=== PATIENT | female | born 1955 | race Caucasian/White ===

== ENCOUNTER → 2022-04-15 12:22 | Outpatient (BNVA) | payer OTHER, SELFPAY | PROVIDERS: PCP Pediatrics; Visit Provider Dietitian, Registered | DX: E11.9 Type 2 diabetes mellitus without complications (principal) | CPT/HCPCS: 97802 ==

== ENCOUNTER 2022-05-21 08:00 | Outpatient (REF) | payer OTHER, SELFPAY ==
--- NOTE | ~2022-05-21 | XR_ITS ---
EXAMINATION: XR SHOULDER, RIGHT CLINICAL INFORMATION: Pain COMPARISON: None TECHNIQUE: Three views of the right shoulder. FINDINGS: Normal glenohumeral alignment. No acute fracture or dislocation. Mild acromioclavicular arthritis. No abnormal soft tissue calcification. No suspicious findings in the visualized right lung.. XR/XR shoulder RT min 2V IMPRESSION: No acute osseous abnormality. Mild acromioclavicular arthritis.
== END 2022-05-21 08:01 | disposition home or self-care (01) ==
LOC: HO.HOSX 08:00
PROVIDERS: Visit Provider Physician Assistant
DX: M75.101 Unspecified rotator cuff tear or rupture of right shoulder, not specified as traumatic (principal); E11.9 Type 2 diabetes mellitus without complications
CPT/HCPCS: 20610; 73030; J1020

== ENCOUNTER 2022-07-05 10:16 | Outpatient (RCR) | payer OTHER, SELFPAY | END 2022-08-05 12:39 | disposition home or self-care (01) | LOC: HO.PT 10:16 | PROVIDERS: PCP Pediatrics; Visit Provider Physician Assistant | DX: M75.101 Unspecified rotator cuff tear or rupture of right shoulder, not specified as traumatic (principal) ==

== ENCOUNTER 2023-02-02 12:03 | Emergency (ER) | payer OTHER, SELFPAY ==
--- NOTE | ~2023-02-02 | XR_ITS ---
EXAMINATION: XR FOOT, LEFT CLINICAL INFORMATION: Question fracture COMPARISON: None available. TECHNIQUE: AP, lateral, and oblique views of the left foot. FINDINGS: Soft tissue marker positioned on the dorsal aspect of the midfoot. There are linear lucencies seen in the fifth metatarsal distal metadiaphysis. Findings raise concern for an undisplaced fracture. There is linear lucency seen in the more proximal shaft/base of the fifth metatarsal, could represent vascular channels versus undisplaced fracture planes. There is lucency and mild cortical malalignment of the distal fourth metatarsal neck, suspicious for a fracture. Alignment is anatomic. Tarsometatarsal alignment appears maintained. Small ossification distal to the medial sesamoid, could represent degenerative changes versus age indeterminate trauma. Clinically correlate. XR/XR foot LT min 3V IMPRESSION: 1. Findings suspicious for a nondisplaced fracture of the fifth metatarsal distal metadiaphysis. Linear lucencies in the proximal fifth metatarsal, could represent a vascular channel versus undisplaced fracture planes. 2. Findings suspicious for a distal fourth metatarsal neck fracture. 3. Small ossification distal to the medial sesamoid, could represent degenerative changes versus age-indeterminate trauma. Clinically correlate.
[2023-02-02 12:16] VITALS: BP 131/92; PULSE 79; RESP 18; TEMP 36.9; O2SAT 97; BMI 22.0
--- NOTE | 2023-02-02 13:38 | ED_ITS ---
HPI - General Adult General Chief complaint: Fall Stated complaint: fell 02/01/ broken foot? Time Seen by Provider: 02/02/23 12:56 Source: patient Mode of arrival: ambulatory Limitations: no limitations History of Present Illness HPI narrative: 67 yold female presents to the ED for left foot pain since yesterday. patient states yesterday she twisted her foot and heard a crack in the foot. patient she twisted her left foot trying to break her fall at a restaurant. patient denies falling to the ground or hitting head. Patient states for pain while walking since yesterday. Related Data Home Medications Medication Instructions Recorded Confirmed flash glucose sensor (FreeStyle #1 ea 05/21/22 Radha 14 Day Sensor kit) metformin 500 mg tablet,extended 1,000 mg PO BID 05/21/22 release 24 hr Previous Rx's Medication Instructions Recorded naproxen 500 mg tablet 500 mg PO BID PRN pain 7 days #14 02/02/23 tabs Allergies Allergy/AdvReac Type Severity Reaction Status Date / Time No Known Allergies Allergy Verified 05/21/22 15:06 Review of Systems Review of Systems: Left foot pain Yes all other systems are reviewed and are negative [facility] Social History Social History (Updated 05/21/22 @ 15:07 by Gwen Washington Kalin) Patient Tobacco Use Status: Never used Tobacco Advance Directives: Yes Advance Directives Information Provided: Yes Advance Directives on File: No Current occupational status: employed 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, 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 Physical Exam ED Vital Signs: Vital Signs - 24 hr 02/02/23 12:16 Temperature 98.5 F Pulse Rate 79 Respiratory Rate 18 Blood Pressure 131/92 H Pulse Oximetry 97 Oxygen Delivery Method Room Air BMI result Body Mass Index 22.0 Const General: cooperative, healthy appearing, comfortable, no acute distress, well developed, alert, awake and Physically active Orientation/consciousness: oriented to person, oriented to place, oriented to time and patient oriented x3 HENMT Head: Yes normal to inspection, Yes No palpable skull fracture present, Yes normocephalic, Yes atraumatic and No abrasion Ears: hearing grossly normal bilaterally, external ears normal, TM's normal bilaterally, TM normal on the right, TM normal on the left, EAC's normal, mastoids normal and no periauricular adenopathy Eyes General: appearance normal, both eyes and all related structures Neck Neck: Yes normal visual inspection, Yes full ROM, Yes no lymphadenopathy, Yes no meningeal signs, Yes trachea midline, Yes supple, No anterior neck swelling and No tender Chest Chest palpation & inspection: normal inspection of the chest and normal palpation of entire chest wall Resp Effort & Inspection: normal respiratory effort and able to speak in complete sentences Cardio Jugular venous distension: no JVD Heart sounds: S1 normal heart sound present and S2 normal heart sound present GI Inspection: Yes normal to inspection and No abdominal wall ecchymosis Palpation (GI): Soft to palpation, not firm, nontender, no guarding and not rigid General: No CVA tenderness and Yes no CVA tenderness Back/Spine/Pelvis Back: no CVA tenderness, No CVA tenderness and No back tenderness Skin General skin exam: no rashes or lesions noted and elasticity normal Neuro General: oriented to person, oriented to place, oriented to time, patient oriented x3, gait normal, tone normal, moves all extremities, Normal light touch and pain sensation, no meningeal signs, no focal motor deficits, CN's II-XI intact bilaterally and normal sensation to monofilament Extrem General: Yes normal to inspection and Yes full ROM Ankle/foot/toe images: 1. Positive for slight tenderness on palpation. Negative for ecchymosis, erythema, crepitus, or deformities. Motor/neuro/vascular exam intact. 2. Positive for slight tenderness on palpation. Negative for ecchymosis, erythema, crepitus, or deformities. Motor/neuro/vascular exam intact. Psych Appearance: grossly normal, well kempt and not disheveled Course Course Course Narrative: 67-year-old female left foot pain. Medical Decision Making Medical Decision Making [facility] Narrative: 67-year-old female presents to the ED for left foot pain since yesterday due to twisting her left foot trying to break a fall. Patient denies any head trauma or any other physical complaints. X-rays positive for fracture. No need for an y head CT scan of cervical spine CT negative for tenderness or signs of trauma. Rest of body negative for trauma. Patient placed in posterior splint and crutches. Differential Diagnosis Differential Diagnoses: The differential diagnosis associated with the presentation includes (Foot fracture, foot dislocation, brain bleed, skull fract ure,) Admission/Observation Consideration of admission/observation: Escalation of care including admission/observation considered Independent Interpretation I performed an independent interpretation of an: Plain X-Ray Radiology Impression Discussion of test interpretation with radiology: I have reviewed the radiologist's reading. Tests considered The following testing was considered but not selected: Head CT, cervical spine CT Prescription Management I considered prescription management with: Pain Medication Discharge Plan Discharge Clinical Impression: Foot fracture, left Patient Disposition: Home, Self-Care Instructions: Foot Fracture in Adults (ED) Additional Instructions: You need to follow-up with orthopedic surgeon. Return to the ED immediately for purplish black discoloration of toes, severe pain, leg swelling, calf pain, chest pain, shortness of breath, redness, numbness/tingling, or any other concerning symptoms. Prescriptions: New naproxen 500 mg tablet 500 mg PO BID PRN (Reason: pain) 7 Days Qty: 14 0RF No Action metformin 500 mg tablet extended release 24 hr 1,000 mg PO BID (DME) FreeStyle Radha 14 Day Sensor Kit See Rx Instructions .ROUTE Q2W Qty: 1 Rx Instructions: As directed Referrals: Shaun Cooper MD [Physician] - (left foot fracture) Interventions: ED Discharge Assessment Last Done: 02/02/23 13:54 Discharge Date/Time: 02/02/23 13:55 Print Language: Bur[place]ian
== END 2023-02-02 13:55 | disposition home or self-care (01) ==
PROVIDERS: Emergency Provider Internal Medicine; PCP Pediatrics
DX: S92.902A Unspecified fracture of left foot, initial encounter for closed fracture (principal); M79.672 Pain in left foot; X50.1XXA Overexertion from prolonged static or awkward postures, initial encounter; Y93.9 Activity, unspecified; Y92.9 Unspecified place or not applicable; Y99.9 Unspecified external cause status; Z79.899 Other long term (current) drug therapy
CPT/HCPCS: 29515; 73630; 99282; 99284

== ENCOUNTER → 2023-02-06 14:17 | Outpatient (BNVA) | payer OTHER, SELFPAY | PROVIDERS: PCP Pediatrics; Visit Provider Physician Assistant ==

== ENCOUNTER 2023-03-17 06:59 | Outpatient (REF) | payer OTHER, SELFPAY ==
--- NOTE | ~2023-03-17 | XR_ITS ---
EXAMINATION: XR FOOT, LEFT CLINICAL INFORMATION: Pain COMPARISON: 02/02/2023 TECHNIQUE: AP, lateral, and oblique views of the left foot. FINDINGS: Soft tissue swelling is decreased from the prior study. I do not appreciate any acute fracture or dislocation. Likely subtle healed oblique nondisplaced fracture the distal fifth metatarsal again noted. Additional healed fracture of the distal fourth metatarsal noted. Mild degenerative changes first MTP joint. XR/XR foot LT min 3V IMPRESSION: Soft tissue swelling but no acute fracture or dislocation. Healed fractures of the fourth and fifth metatarsals again noted.
== END 2023-03-17 07:00 | disposition home or self-care (01) ==
LOC: HO.HOSX 06:59
PROVIDERS: Visit Provider Physician Assistant
DX: S92.302D Fracture of unspecified metatarsal bone(s), left foot, subsequent encounter for fracture with routine healing (principal); X58.XXXD Exposure to other specified factors, subsequent encounter
CPT/HCPCS: 73630

== ENCOUNTER 2023-03-17 14:48 | Outpatient (AMB) | payer OTHER, SELFPAY ==
[2023-03-17 14:54] VITALS: BMI 22.0
--- NOTE | 2023-03-17 14:54 | MHC.OFFVIS ---
Intake Vital Signs 03/17/23 14:54 Height 5 ft 3 in Weight 124 lb BMI 22.0 Intake Visit Reasons: OV - Left Calcaneus Fx, DOI 02/01/23 Intake Note: Sharee is a 67 year old female who presents today for a follow up of left calcaneus fx, DOI 02/01/23. Xrays updated inoffice. States she cont's to have swelling abd soreness but over all doing well. Allergies No Known Allergies Allergy (Verified 03/17/23 14:57) HPI OV - Left Calcaneus Fx, DOI 02/01/23 HPI Details 67-year-old female who returns to the office today for a follow-up of left calcaneus fracture, 02/01/23. She continues to have swelling and soreness in her foot but is doing well overall. She has no concerns today. 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 No bruising along the dorsum of the left foot. There is very mild tenderness along the 4th and 5th metatarsals. Sensation intact. EHL intact. No pain along the mediolateral malleolus. Neurovascularly intact. Results Reviewed Results Reviewed: xrays of the left foot obtained in the office today show non displaced fracture through the 5th metatarsal with non displaced fracture along the nec of the 4th metatarsal with interval healing and callus formation Assessment & Plan Assessment & Plan (1) Metatarsal fracture: Code(s): S92.309A - Fracture of unspecified metatarsal bone(s), unspecified foot, initial encounter for closed fracture Plan She will increase activity as tolerated keeping in mind she should continue to wear comfort shoes that do not allow much motion along the fracture site. She will avoid any type of impact activities and walking on uneven surface for the next 4-6 weeks. If symptoms persist or worsens, or she has any new concerns, patient will contact the office, otherwise follow-up as needed. Orders: Orders XR foot LT min 3V 03/17/23 M79.672 - Pain in left foot Patient Instructions: Scribed for Germain Rodriguez PA-C, by Rusty Leiva special forces medical sergeant, on 03/17/2023 at 3:00 PM EST. I, Germain Rodriguez PA-C, have personally reviewed and agree with the information entered by the scribe. Coding Level of Care Code Global (25920) Diagnoses Metatarsal fracture S92.309A
== END 2023-03-17 15:06 | disposition home or self-care (01) ==
PROVIDERS: PCP Pediatrics; Visit Provider Physician Assistant
DX: S92.345D Nondisplaced fracture of fourth metatarsal bone, left foot, subsequent encounter for fracture with routine healing (principal); S92.354D Nondisplaced fracture of fifth metatarsal bone, right foot, subsequent encounter for fracture with routine healing
CPT/HCPCS: 99213

== ENCOUNTER 2023-09-09 08:29 | Outpatient (AMB) | payer OTHER, SELFPAY ==
[2023-09-09 08:30] VITALS: BMI 22.0
--- NOTE | 2023-09-09 08:30 | A.OFFVIS_ITS ---
Intake Vital Signs 09/09/23 08:30 Height 5 ft 3 in Weight 124 lb BMI 22.0 Intake Visit Reasons: ov- right shoulder pain Intake Note: Sharee is a 67 year old right hand dominant female who presents today for a follow up of her right shoulder pain, last injection 05/21/22. Patient reports she would like to repeat. She states that she has tried PT but it only gave her mild relief. She has taken Tylenol and anti-inflammatory medicines which gave her minimal relief. She denies any fevers or chills. She denies any weakness in her shoulder. 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 Physical Exam Vital Signs: BMI result Body Mass Index 22.0 Const Other: Well-nourished well-developed very friendly female awake alert and oriented x3 in no acute distress Extrem Other: Bilateral upper extremity examination shows good capillary refill, no skin lesi ons noted, normal sensation light touch Right shoulder examination shows almost full range of motion when compared to her left shoulder, 4+ out of 5 strength with supraspinatus testing, positive impingement signs, tenderness over her acromioclavicular joint, no instability Office Procedures Joint Injection/Drain Joint Injection/Drain Primary Site: right shoulder Prep: site was prepped using aseptic technique Injected: 40 mg of, DepoMedrol and 1% plain lidocaine Procedure: The patient tolerated the procedure well Coding 87186 - Large joint Procedure code (CPT) selection complete Results Reviewed Results Reviewed: X-rays of the patient's right shoulder taken today show a type 1 acromion, minimal acromioclavicular joint narrowing, no acute bony abnormalities Assessment & Plan Assessment & Plan (1) Right shoulder pain: Code(s): M25.511 - Pain in right shoulder Plan Ms. Almaguer presents with right shoulder pain most likely due to rotator cuff tendinosis. I had a lengthy discussion with the patient regarding the treatment options. The risks and benefits of a right shoulder cortisone injection were discussed at length with the patient. The patient wished to proceed with the injection. She tolerated the injection well. She will continue with her home stretching program to prevent stiffness. She will follow up with me on an as- needed basis should her symptoms not plateau at an unacceptable level over the next few months. Feel free to call me at any time should questions regarding her orthopedic management arise. I spent 22 minutes in reviewing the patient's records and imaging studies, seeing the patient and documenting in the medical record. Orders: Orders XR shoulder RT min 2V 09/09/23 M25.511 - Pain in right shoulder AMB Joint Injection/Aspiration 09/09/23 M25.511 - Pain in right shoulder Coding Level of Care Code Est Pt Level 2 (61140) Diagnoses Right shoulder pain M25.511 CPT Codes Coding - 93190 Large joint: 66388 - Large joint ([id number])
== END 2023-09-09 09:02 | disposition home or self-care (01) ==
PROVIDERS: PCP Pediatrics; Visit Provider Orthopaedic Surgery
DX: M25.511 Pain in right shoulder (principal)
CPT/HCPCS: 20610; 99213

== ENCOUNTER 2023-09-09 09:54 | Outpatient (REF) | payer OTHER, SELFPAY ==
--- NOTE | ~2023-09-09 | XR_ITS ---
EXAMINATION: XR SHOULDER, RIGHT CLINICAL INFORMATION: Pain in the right shoulder COMPARISON: X-rays of the right shoulder May 2022 TECHNIQUE: Two views of the right shoulder. FINDINGS: Attenuation of the distal clavicle in this projection raise the question of interval surgery versus a slight differences in projection since the prior examination. The bones joints and soft tissues otherwise unremarkable. XR/XR shoulder RT min 2V IMPRESSION: Attenuation of the distal clavicle in this projection raise the question of interval surgery versus a slight differences in projection since the prior examination.
== END 2023-09-09 09:55 | disposition home or self-care (01) ==
LOC: HO.HOSX 09:54
PROVIDERS: Visit Provider Orthopaedic Surgery
DX: M25.511 Pain in right shoulder (principal)
CPT/HCPCS: 20610; 73030; J1020

== ENCOUNTER 2023-12-09 10:54 | Outpatient (AMB) | payer OTHER, SELFPAY ==
[2023-12-09 11:08] VITALS: BMI 22.0
--- NOTE | 2023-12-09 11:08 | A.OFFVIS_ITS ---
Intake Vital Signs 12/09/23 11:08 Height 5 ft 3 in Weight 124 lb BMI 22.0 Intake Visit Reasons: OV-right shoulder pain-F/U Intake Note: Sharee is a 67 year old female who present for a follow up of Right shoulder pain. She did have a cortisone injection given into her right shoulder in September. She states that she got fairly good relief from that injection. She continues with her home exercise program. She has undergone right shoulder surgery in the past. She denies any weakness. 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 Physical Exam Vital Signs: BMI result Body Mass Index 22.0 Const Other: Well-nourished well-developed very friendly female awake alert and oriented x3 in no acute distress Extrem Other: Bilateral upper extremity examination shows good capillary refill, no skin lesions noted, normal sensation light touch Right shoulder examination shows full range when compared to her left shoulder, minimal discomfort with resisted forward flexion, no discomfort with resisted internal or external rotation Assessment & Plan Assessment & Plan (1) Right shoulder pain: Code(s): M25.511 - Pain in right shoulder Plan Ms. Almaguer continues to do well after undergoing right shoulder surgery. She will continue with her home exercise program. The do's and don'ts of lifting were discussed at length with the patient. She will follow up with me on an as- needed basis should her symptoms worsen in any way. Feel free to call me at any time should questions regarding her orthopedic management arise. I spent 19 minutes in reviewing the patient's records and imaging studies, seeing the patient and documenting in the medical record. Coding Level of Care Code Est Pt Level 2 (12485) Diagnoses Right shoulder pain M25.511
== END 2023-12-09 11:52 | disposition home or self-care (01) ==
PROVIDERS: PCP Pediatrics; Visit Provider Orthopaedic Surgery
DX: M25.511 Pain in right shoulder (principal)
CPT/HCPCS: 99212

== ENCOUNTER → 2023-12-09 10:54 | Outpatient (BNVA) | payer OTHER, SELFPAY | PROVIDERS: PCP Pediatrics; Visit Provider Orthopaedic Surgery ==

== ENCOUNTER 2024-05-26 11:23 | Outpatient (AMB) | payer MEDICARE, SELFPAY ==
--- NOTE | 2024-05-26 11:28 | MHC.OFFVIS ---
Intake Visit Reasons: ov-right shoulder pain-F/U Intake Note: Sharee is a 68 year old female who presents with complaints of mild intermittent discomfort in her right shoulder after undergoing right shoulder arthroscopic surgery in 2021. She denies any weakness in her shoulder. She continues to row for exercise. 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 Almaguer continues to do well after undergoing right shoulder arthroscopic surgery. She will continue with her exercise program. The do's and don'ts of lifting were discussed at length with the patient. She will follow up with me on an as-needed basis should her symptoms worsen in any way. I spent 21 minutes in reviewing the patient's records and imaging studies, seeing the patient and documenting in the medical record. Coding Level of Care Code Est Pt Level 3 (09281) Complex EM visit Add On G2211 Diagnoses Right shoulder pain M25.511
== END 2024-05-26 11:43 | disposition home or self-care (01) ==
PROVIDERS: PCP Pediatrics; Visit Provider Orthopaedic Surgery
DX: M25.511 Pain in right shoulder (principal)
CPT/HCPCS: 99213; G2211

== ENCOUNTER → 2024-05-26 11:23 | Outpatient (BNVA) | payer MEDICARE, SELFPAY | PROVIDERS: PCP Pediatrics; Visit Provider Orthopaedic Surgery | DX: M25.511 Pain in right shoulder (principal) | CPT/HCPCS: 99212 ==